=== PATIENT | male | born 1970 | race African-American/Black ===

== ENCOUNTER 2017-02-15 18:59 | Emergency (ER) | payer OTHER ==
[~2017-02-15] VITALS: Ht 167.6 cm; Wt 121.9 kg
[~2017-02-15 18:59] MED LIST: ADVAIR HFA120 INHALA IH; ATARAX,VISTARIL25 MG PO; ERGOCALCIF50000 UNIT PO; FLAGYL500 MG PO; GLUCOPHAGE500 MG PO; LEXAPRO20 MG PO; LYRICA50 MG PO; MS CONTIN,ORAMO15 M1 PO; NAPROSYN500 MG; NEURONTIN600 MG PO; NOHOMEMEDS; OMEPRAZOLE20 M2; OXYCODONE-APAP1 EACH; PEPTO BISMOL262 MG PO; PERCOCET 10/1 TABLET PO; PERCOCET 7.51 TABLET PO; PRAVACHOL40 MG PO; PRAVACHOL80 MG PO; PRILOSEC20 MG PO; PRILOSEC40 MG PO; PRINIVIL5 MG PO; PROAIR HFA8.5 GM; RANITIDINE HCL150 MG; RISPERDAL0.5 MG; SAPHRIS10 MG SL; SEROQUEL200 MG PO; SPIRIVA1 INHALATI IH; TETRACYCLINE PO; VISTARIL50 MG PO; XANAX1 MG PO; ZESTRIL2.5 MG PO
[2017-02-15 22:05] LABS: HEMATOCRIT 40.5 % (38.0-50.0); MCH 25.3 PG (29.0-34.0); MCHC 30.6 G/DL (30.0-36.0); MCV 82.5 FL (86-99); MEAN PLAT.VOLUME 10.3 uM^3 (9.0-12.4); PLATELET COUNT 278 K/uL (156-360); RBC DIS.WIDTH-CV 15.1 % (11.8-14.6); RED BLOOD COUNT 4.91 M/uL (4.00-5.50); WHITE BLOOD COUNT 13.4 K/uL (4.1-10.2)
[2017-02-15 22:20] LABS: CHLORIDE 105 mEq/L (99-109); SODIUM 141 mEq/L (136-147)
[2017-02-15 22:21] LABS: GLUCOSE 145 mg/dL (70-99)
[2017-02-15 22:23] LABS: ANION GAP 9 MEQ/L (2-14)
[2017-02-15 22:25] LABS: GFR ESTIMATE (CALCULATED) > 59 mL/min/
[2017-02-15 22:26] LABS: UREA NITROGEN (BUN) 12 mg/dL (9-23)
[2017-02-15 22:28] LABS: TROP-I INTERPRETATION NEGATIVE; TROPONIN-I < 0.01 ng/mL (0.0-0.30)
[2017-02-15] MEDS ORDERED: PERCOCET 5/31 TABLET PO (22:48)
[2017-02-15] MEDS ORDERED: ZITHROMAX Z-PA250 MG PO (22:48)
[2017-02-15] MEDS ORDERED: PREDNISONE20 MG PO (22:48)
[2017-02-16 01:04] VITALS: BP 142/99
== END 2017-02-16 00:30 | disposition home or self-care (01) ==
LOC: EME → EDBD 18:59 → EME 18:59
PROVIDERS: Physician Assistant
DX: S82.892A Other fracture of left lower leg, initial encounter for closed fracture (principal); J44.1 Chronic obstructive pulmonary disease with (acute) exacerbation; M54.2 Cervicalgia; V49.40XA Driver injured in collision with unspecified motor vehicles in traffic accident, initial encounter; F17.200 Nicotine dependence, unspecified, uncomplicated
CPT/HCPCS: 71020; 71260; 73610; 80048; 83880; 84484; 85027; 93005; 94640; 99281; 99284; J2930